=== PATIENT | male | born 2000 | race Caucasian/White ===

== ENCOUNTER 2022-06-27 20:57 | Emergency (ER) | payer OTHER ==
[2022-06-27] MEDS ORDERED: Ondansetron ODT 4 MG TAB ONE (22:06)
[2022-06-27] MEDS ORDERED: Acetaminophen 500 MG TAB ONE (22:06)
[2022-06-27] MEDS ORDERED: Ibuprofen 200 MG TAB ONE (22:09)
[2022-06-27] MEDS ORDERED: Dexamethasone 10 MG/ML VIAL ONE (22:11)
[2022-06-27] MEDS ORDERED: Bicillin LA 1.2 MILLION UNITS/2 ML SYRINGE IM SCH (22:30)
== END 2022-06-27 23:52 | disposition home or self-care (01) ==
LOC: CSHERS 20:57
DX: J02.0 Streptococcal pharyngitis (principal)
CPT/HCPCS: 99283; J0561; J1100; Q0162